=== PATIENT | male | born 1995 | race Caucasian/White ===

== ENCOUNTER 2018-01-20 21:41 | Emergency (ER) | payer OTHER, SELFPAY ==
[2018-01-20 21:55] VITALS: BP 119/72; PULSE 88; RESP 18; TEMP 36.6; O2SAT 100; BMI 22.8
--- NOTE | 2018-01-20 22:33 | DI.RAD.S_ITS ---
PROCEDURE: XR TOE LT MIN 2V INDICATIONS: hurt left 5th toe TECHNIQUE: 3 views of the 5th toe(s) acquired. COMPARISON: None. FINDINGS: Bones: No fractures or dislocations. No suspicious bony lesions. There is Tailor's bunion. vomiting. Soft tissues: No suspicious soft tissue densities. IMPRESSION: 1. No fracture or dislocation. 2. Tailor's bunion. Dictated by: Davon Rodriguez M.D. on 01/21/2018 at 9:38 Approved by: Davon Rodriguez M.D. on 01/21/2018 at 9:40
--- NOTE | 2018-01-21 00:53 | PC.NURSE ---
patient reports left 5th toe pain after he stubbed it tonight. no falls or other injuries.
--- NOTE | 2018-01-21 00:56 | PC.NURSE ---
xray was completed when patient was waiting in the lobby.
[2018-01-21 01:15] VITALS: BP 107/63; PULSE 77; RESP 18; TEMP 36.9; O2SAT 96
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
== END 2018-01-21 01:46 | disposition home or self-care (01) ==
PROVIDERS: Emergency Provider Emergency Medicine
DX: S93.505A Unspecified sprain of left lesser toe(s), initial encounter (principal); W22.09XA Striking against other stationary object, initial encounter
CPT/HCPCS: 73660; 99282; 99283

== ENCOUNTER 2018-06-17 15:07 | Emergency (ER) | payer OTHER, SELFPAY ==
[2018-06-17 15:34] VITALS: BP 117/69; PULSE 83; RESP 15; TEMP 37.1; O2SAT 98; BMI 24.3
[2018-06-17 15:57] LABS: Influenza A and B by PCR Rapid Negative (Negative)
--- NOTE | 2018-06-17 16:20 | ED_ITS ---
HPI - URI/Sore Throat <GERRY Gordillo - Last Filed: 06/17/18 21:53> General Chief Complaint: Upper Respiratory Symptoms Stated Complaint: FLU,COUGHING BLOOD AND MUCUS Time Seen by Provider: 06/17/18 16:19 Source: patient Mode of arrival: ambulatory Limitations: no limitations History of Present Illness HPI Narrative: 22-year-old healthy male that is a nonsmoker here for complaint of having cough generalized malaise and nasal congestion over the past several days. He also reports having a sore throat. He states that a couple days ago he had some blood tinged sputum. He denies any recent fever. Positive p.o. intake his has similar symptoms. No other concerns or complaints. Related Data Allergies Allergy/AdvReac Type Severity Reaction Status Date / Time Sulfa (Sulfonamide Allergy Unknown Verified 06/17/18 15:34 Antibiotics) [SULFA (SULFONAMIDE ANTIBIOTICS)] Review of Systems <GERRY Gordillo - Last Filed: 06/17/18 21:53> Constitutional Denies chills, Denies fever(s), Denies lethargy and Denies weakness Eyes Denies change in vision, Denies eye discharge, Denies irritation and Denies loss of vision ENT Ears, Nose, Mouth, and Throat: Reports nasal discharge, Reports sore throat and Denies throat swelling Cardiovascular Denies chest pain, Denies irregular heart rhythm, Denies lightheadedness, Denies palpitations and Denies orthopnea Respiratory Reports cough and Denies wheezing Gastrointestinal Gastrointestinal: Denies abdominal pain, Denies change in bowel habits, Denies diarrhea, Denies nausea and Denies vomiting Genitourinary Denies hematuria, Denies flank pain, Denies urinary incontinence and Denies urinary urgency Musculoskeletal Denies back pain, Denies muscle weakness, Denies numbness and Denies tingling Integumentary/Breasts Denies pruritus, Denies erythema, Denies rash and Denies wounds Neurologic Denies loss of vision, Denies numbness, Denies tingling and Denies weakness Endocrine Denies palpitations Hematologic/Lymphatic Denies easy bruising Allergic/Immunologic Denies urticaria, Denies throat swelling and Denies wheezing Exam <GERRY Gordillo - Last Filed: 06/17/18 21:53> Initial Vital Signs Initial Vital Signs: Vital Signs Temperature 98.7 F 06/17/18 15:34 Pulse Rate 83 06/17/18 15:34 Respiratory Rate 15 06/17/18 15:34 Blood Pressure 117/69 06/17/18 15:34 Pulse Oximetry 98 06/17/18 15:34 Const General: cooperative and well developed Nutritional Appearance: well nourished Orientation: alert, awake, oriented x3 and not confused [facility] Mouth: oral mucosae normal, oropharynx normal and moist mucous membranes Eyes Conjunctivae: conjunctivae normal Sclera: sclerae normal Pupils: PERRL EOM: EOM intact bilaterally Resp Effort & Inspection: normal respiratory effort, able to speak in complete sentences, no respiratory distress and no use of accessory muscles Auscultation: clear to auscultation bilaterally, no rales, no rhonchi and no wheezes Cardio Rate: regular rate Rhythm: regular rhythm Heart Sounds: no click, no gallops, no murmurs and no rubs Pulses: normal peripheral pulses Skin General: no rashes or lesions noted, No jaundice and No petechiae Neuro General: alert, oriented x3, gait normal and no focal motor deficits Speech: speech normal <Prisca Mcdaniels DO - Last Filed: 06/18/18 08:26> Initial Vital Signs Initial Vital Signs: Vital Signs Temperature 98.7 F 06/17/18 15:34 Pulse Rate 83 06/17/18 15:34 Respiratory Rate 15 06/17/18 15:34 Blood Pressure 117/69 06/17/18 15:34 Pulse Oximetry 98 06/17/18 15:34 Course <GERRY Gordillo - Last Filed: 06/17/18 21:53> Orders Ordered: ED Orders 06/17/18 15:37 Influenza A and B by PCR Rapid Stat Vital Signs - 8 hr 06/17/18 15:34 06/17/18 18:45 Temperature 98.7 F 98.2 F Pulse Rate 83 81 Respiratory Rate 15 16 Blood Pressure 117/69 Blood Pressure [Left Arm] 122/73 Pulse Oximetry 98 100 <Prisca Mcdaniels DO - Last Filed: 06/18/18 08:26> Orders Ordered: ED Orders 06/17/18 15:37 Influenza A and B by PCR Rapid Stat Vital Signs - 8 hr 06/17/18 15:34 06/17/18 18:45 Temperature 98.7 F 98.2 F Pulse Rate 83 81 Respiratory Rate 15 16 Blood Pressure 117/69 Blood Pressure [Left Arm] 122/73 Pulse Oximetry 98 100 MDM - URI/Sore Throat <GERRY Gordillo - Last Filed: 06/17/18 21:53> Differential Diagnosis Differential diagnosis: Likely bronchitis Lab Data Lab Results 06/17/18 Range/Units 15:37 Influenza A & B (PCR) Negative (Negative) MDM Narrative Medical decision making narrative: Influenza swab was obtained was unremarkable. Signs and symptoms presents as a viral upper respiratory infection. Plenty of fluids and rest. [id number] Tylenol or Motrin as needed for discomfort and fever. Saline irrigation and nasal passages and hot showers to help with congestion follow up with primary care provider next week. Return emergency room for any worsening symptoms. <Prisca Mcdaniels DO - Last Filed: 06/18/18 08:26> Lab Data Lab Results 06/17/18 Range/Units 15:37 Influenza A & B (PCR) Negative (Negative) Discharge Plan Departure Patient Disposition: Home Clinical Impression: Upper respiratory infection Discharge Date/Time: 06/17/18 18:47 Interventions: ED Discharge Assessment Last Done: 06/17/18 18:37 Instructions: DI for Viral Upper Respiratory Infection -- Adult Activity Restrictions/Additional Instructions: Influenza swab was obtained was unremarkable. Signs and symptoms presents as a viral upper respiratory infection. Plenty of fluids and rest. Over-the- counter Tylenol or Motrin as needed for discomfort and fever. Saline irrigation and nasal passages and hot showers to help with congestion follow up with primary care provider next week. Return emergency room for any worsening symptoms. Referrals: [facility] [Provider Group] <Prisca Mcdaniels DO - Last Filed: 06/18/18 08:26> Cosign ED Attending Cosignature Attestation: I was immediately available in the department for consultation. This documentation has been reviewed and I agree with assessment and plan. Supervised by Prisca Mcdaniels DO
--- NOTE | 2018-06-17 18:02 | RT ---
EKG performed at 1744 and given to provider Moi
[2018-06-17 18:45] VITALS: BP 122/73; PULSE 81; RESP 16; TEMP 36.8; O2SAT 100
== END 2018-06-17 18:47 | disposition home or self-care (01) ==
PROVIDERS: Emergency Medicine; Emergency Provider Nurse Practitioner Family
DX: J06.9 Acute upper respiratory infection, unspecified (principal)
CPT/HCPCS: 87400; 99282; 99283

== ENCOUNTER 2019-03-05 19:16 | Emergency (ER) | payer OTHER, SELFPAY ==
[2019-03-05 19:22] VITALS: BP 115/77; PULSE 113; RESP 18; TEMP 37.3; O2SAT 100
--- NOTE | 2019-03-05 19:25 | ED_ITS ---
HPI - General Adult General Stated complaint: fever and chills, wisdoms extracted Time Seen by Provider: 03/05/19 19:19 Source: patient Mode of arrival: ambulatory Limitations: no limitations History of Present Illness HPI narrative: 23-year-old male here for evaluation of a fever and sinus congestion. He states that 9 days ago he underwent a was in teeth extraction of all 4 wisdom teeth. Yesterday he did spend a ?extended ?amount of time in a hot tub. When he got out he felt fevers. He states this morning his field some nausea and pressure in his head. Did take some leftover oxycodone which had Tylenol in it prior to arrival. Related Data Allergies Allergy/AdvReac Type Severity Reaction Status Date / Time Sulfa (Sulfonamide Allergy Unknown Verified 03/05/19 19:26 Antibiotics) [SULFA (SULFONAMIDE ANTIBIOTICS)] Review of Systems Constitutional Constitutional: Reports fever(s) and Reports headache(s) (?Pressure ?) ENT Ears, Nose, Mouth, and Throat: Denies vertigo, Reports headache(s) (?Pressure ?), Denies neck pain and Reports sinus pressure Cardiovascular Cardiovascular: Denies chest pain and Denies dyspnea Respiratory Respiratory: Denies dyspnea Gastrointestinal Gastrointestinal: Denies abdominal pain Genitourinary Genitourinary: Denies dysuria Musculoskeletal Musculoskeletal: Reports back pain (Lower back pain), Denies myalgias, Denies arthralgias and Denies neck pain Integumentary/Breasts Skin/Breast: Denies lesions and Denies rash Neurologic Neurologic: Denies vertigo and Reports headache(s) (?Pressure ?) Hematologic/Lymphatic Hematologic/Lymphatic: Denies easy bleeding and Denies easy bruising [facility] Medical History Healthy adult (Acute) Social History Smoking Status: Never smoker alcohol intake: never substance use type: does not use Exam Const General: cooperative, comfortable, well developed and well groomed Orientation: alert, awake and oriented x3 HENMT Head: normal to inspection and normocephalic Ears: other (Left TM bulging right TM unremarkable) Neck Neck: no meningeal signs Resp Effort & Inspection: normal respiratory effort Auscultation: clear to auscultation bilaterally Cardio Rate: regular rate Rhythm: regular rhythm Skin Lesions: no lesions Rashes: no rashes Neuro General: alert, awake and oriented x3 Cognition: normal cognition Speech: speech normal Extrem General: normal to inspection and capillary refill normal Psych Appearance: grossly normal and well kempt Medical Decision Making MDM Narrative Medical decision making narrative: Patient does have signs of an upper respiratory infection. His wisdom teeth extractions like very well. I have low suspicion that this is the cause of his symptoms. Will treat with decongestants. Patient given return precautions and follow-up instructions. Expressed understanding agreement plan. Discharge Plan Departure Patient Disposition: Home Clinical Impression: Acute upper respiratory infection Instructions: DI for Viral Upper Respiratory Infection -- Adult Activity Restrictions/Additional Instructions: Recommend you start a decongestant such as Claritin or [place] or Zyrtec. You can also started nasal spray such as Flonase or Nasonex. He can take Tylenol or ibuprofen for any the fevers. Contact your medical department for follow-up. Stand Alone Forms: Work Release Note
== END 2019-03-05 19:39 | disposition home or self-care (01) ==
PROVIDERS: Emergency Provider Emergency Medicine
DX: J06.9 Acute upper respiratory infection, unspecified (principal)
CPT/HCPCS: 99282

== ENCOUNTER 2020-10-27 13:54 | Emergency (ER) | payer OTHER, SELFPAY ==
[2020-10-27 14:18] VITALS: BP 123/75; PULSE 90; RESP 18; TEMP 37.6; O2SAT 100; BMI 28.8
[2020-10-27 14:27] VITALS: PULSE 80; TEMP 37.6; O2SAT 99
[2020-10-27 14:30] VITALS: BP 119/70; PULSE 79; O2SAT 99
[2020-10-27 15:00] VITALS: BP 118/59; PULSE 70; O2SAT 98
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
[2020-10-27 15:30] VITALS: BP 113/60; PULSE 68; RESP 14; O2SAT 98
== END 2020-10-27 15:46 | disposition home or self-care (01) ==
PROVIDERS: Emergency Provider Emergency Medicine
DX: S00.83XA Contusion of other part of head, initial encounter (principal); W22.8XXA Striking against or struck by other objects, initial encounter
CPT/HCPCS: 99281

== ENCOUNTER 2021-11-16 05:04 | Emergency (ER) | payer OTHER, SELFPAY ==
[2021-11-16 05:19] VITALS: BP 126/86; PULSE 72; RESP 17; TEMP 36.3; O2SAT 100; BMI 25.8
[2021-11-16 05:20] LABS: Appearance Urine UA CLOUDY; Bilirubin Urine UA NEGATIVE (NEGATIVE); Glucose Urine UA NEGATIVE (Negative); Ketones Urine UA NEGATIVE (NEGATIVE); Leukocyte Esterase Urine UA NEGATIVE (NEGATIVE); Nitrite Urine UA NEGATIVE (Negative); Occult Blood Urine UA 3+ (Negative); Protein Urine UA 2+ (Negative); Specific Gravity Urine UA >=1.030 (1.000-1.035); Urobilinogen Urine UA 0.2 E.U./dL (0.2)
--- NOTE | 2021-11-16 05:28 | ED_ITS ---
HPI - General Adult General Chief complaint: Urogenital-Male Stated complaint: groin pain/blood in urine x1 day Time Seen by Provider: 11/16/21 05:16 Source: patient Mode of arrival: Ambulatory Limitations: no limitations History of Present Illness HPI narrative: 26-year-old otherwise healthy male who is here for evaluation of suprapubic/groin discomfort and also blood in his urine. Initially patient states that the symptoms have been going on for the past a however further questioning shows he potentially has been having some lower abdominal discomfort for the past week or so it just has worsened over the past 24 hours. He states that he is having burning when he urinates. He feels like he is not emptying his bladder. Does see blood in his urine. No change in bowel habits. No fevers. He has had symptoms in the past and he states that it was from an enlarged prostate however when he states he was treated with Cipro it appears that he actually had prostatitis. He has never had any sexually transmitted infections. He is . His low concern for sexually transmitted infection currently. He denies testicular pain. No rashes. Related Data Home Medications Medication Instructions Recorded Confirmed gabapentin 300 mg capsule 300 mg PO QAM 10/27/20 10/27/20 Previous Rx's Medication Instructions Recorded hydrocodone 5 mg-acetaminophen 325 1 tab PO Q4-6H PRN #10 tab 11/16/21 mg tablet hydrocodone 5 mg-acetaminophen 325 1 tab PO QID PRN #10 tab 11/16/21 mg tablet ondansetron 4 mg disintegrating 4 mg PO Q6H PRN #10 tab 11/16/21 tablet Allergies Allergy/AdvReac Type Severity Reaction Status Date / Time Sulfa (Sulfonamide Allergy Unknown Verified 10/27/20 14:23 Antibiotics) [SULFA (SULFONAMIDE ANTIBIOTICS)] Review of Systems Constitutional Constitutional: Denies fever(s) Cardiovascular Cardiovascular: Reports system reviewed and no additional complaints, except as documented Respiratory Respiratory: Reports system reviewed and no additional complaints, except as documented Gastrointestinal Gastrointestinal: Reports as per HPI and Reports system reviewed and no additional complaints, except as documented Genitourinary Genitourinary: Reports system reviewed and no additional complaints, except as documented Integumentary/Breasts Skin/Breast: Reports system reviewed and no additional complaints, except as documented Hematologic/Lymphatic On Anticoagulants: No Patient History Medical History Healthy adult Social History Smoking Status: Never smoker alcohol intake: never substance use type: does not use Smoking Status: Never smoker alcohol intake frequency: a few times a week Substance Use Type: does not use Exam Initial Vital Signs Initial Vital Signs: Vital Signs Temperature 97.4 F L 11/16/21 05:19 Pulse Rate 72 11/16/21 05:19 Respiratory Rate 17 11/16/21 05:19 Blood Pressure 126/86 11/16/21 05:19 Pulse Oximetry 100 11/16/21 05:19 Const General: cooperative and healthy appearing HENMT Head: normal to inspection and normocephalic Resp Effort & Inspection: normal respiratory effort Cardio Rate: regular rate GI Inspection: normal to inspection Palpation: soft, No firm and tender (Suprapubic region) Rectal Exam: normal sphincter tone, prostate normal and No fecal impaction Skin General: no rashes or lesions noted Neuro General: patient alert, patient awake and moves all extremities Extrem General: normal to inspection and capillary refill normal Psych Appearance: grossly normal and well kempt Course Orders Ordered: ED Orders 11/16/21 05:15 Chlamydia Gonorrhea PCR -URINE Stat Urinalysis and Microscopic Stat Urine Culture Stat 11/16/21 05:41 CT kidney ureter bladder (KUB) Stat 11/16/21 05:50 Basic Metabolic Panel Stat Complete Blood Count AUTO DIFF Stat Vital Signs Vital signs: Vital Signs - 8 hr 11/16/21 05:19 11/16/21 07:01 Temperature 97.4 F L Pulse Rate 72 70 Respiratory Rate 17 15 Blood Pressure 126/86 117/75 Pulse Oximetry 100 100 Medical Decision Making Lab Data Lab results reviewed: Yes I reviewed the patient's lab results. Result diagrams: 11/16/21 05:50 11/16/21 05:50 Labs: Lab Results 11/16/21 11/16/21 11/16/21 Range/Units 05:15 05:15 05:50 WBC 5.4 (4.5-11.0) X10^3/uL RBC 5.02 (4.5-5.9) X10^6/uL Hgb 16.0 (13.5-17.5) g/dL Hct 45.4 (41-53) % MCV 90.4 (80-100) fL MCH 31.8 (26-34) PG MCHC 35.2 (30-36) % RDW 12.6 (11.6-14.8) % Plt Count 183 (150-400) X10^3/uL Neut % (Auto) 39.1 L (50-75) % Lymph % (Auto) 45.0 H (25-40) % [place] % (Auto) 13.2 (3-14) % Eos % (Auto) 1.9 L (2-4) % Baso % (Auto) 0.8 (0-2) % Neut # (Auto) 2100 (8881-1599) /uL Lymph # (Auto) 2400 (9342-5668) /uL [place] # (Auto) 700 (0-900) /uL Eos # (Auto) 100 (0-450) /uL Baso # (Auto) 0 (0-100) /uL Sodium (137-145) mmol/L Potassium (3.4-5.1) mmol/L Chloride (98-107) mmol/L Carbon Dioxide (22-32) mmol/L BUN (9-20) mg/dL Creatinine (0.66-1.25) mg/dL Estimated GFR (>60) mL/min BUN/Creatinine Ratio (6-22) Glucose (70-100) mg/dL Calcium (8.4-10.2) mg/dL Urine Color Dark yellow Urine Appearance Cloudy Urine pH 5.0 (4.5-8.0) Ur Specific [place] >=1.030 H (1.000-1.035) Urine Protein 2+ H (Negative) Urine Glucose (UA) Negative (Negative) g/dL Urine Ketones Negative (NEGATIVE) Urine Occult Blood 3+ H (Negative) Urine Nitrate Negative (Negative) Urine Bilirubin Negative (NEGATIVE) Urine Urobilinogen 0.2 (0.2) E.U./dL Ur Leukocyte Esterase Negative (NEGATIVE) Urine RBC >100/hpf H (0-5/HPF) Urine WBC 0-1/hpf (0-5/HPF) Ur Squamous Epith Cells 0-1 /hpf (0-5/HPF) Urine Bacteria Few (2-10) H (None) Urine Mucus 2+ H (Negative) Ur Culture Indicated? Specimen cultured Ur Chlamydia DNA (PCR) Not detected N gonorrhoeae DNA (PCR) Not detected 11/16/21 Range/Units 05:50 WBC (4.5-11.0) X10^3/uL RBC (4.5-5.9) X10^6/uL Hgb (13.5-17.5) g/dL Hct (41-53) % MCV (80-100) fL MCH (26-34) PG MCHC (30-36) % RDW (11.6-14.8) % Plt Count (150-400) X10^3/uL Neut % (Auto) (50-75) % Lymph % (Auto) (25-40) % [place] % (Auto) (3-14) % Eos % (Auto) (2-4) % Baso % (Auto) (0-2) % Neut # (Auto) (0219-0625) /uL Lymph # (Auto) (5565-6365) /uL [place] # (Auto) (0-900) /uL Eos # (Auto) (0-450) /uL Baso # (Auto) (0-100) /uL Sodium 141 (137-145) mmol/L Potassium 4.1 (3.4-5.1) mmol/L Chloride 107 (98-107) mmol/L Carbon Dioxide 28 (22-32) mmol/L BUN 18 (9-20) mg/dL Creatinine 1.01 (0.66-1.25) mg/dL Estimated GFR > 60 (>60) mL/min BUN/Creatinine Ratio 17.8 (6-22) Glucose 97 (70-100) mg/dL Calcium 9.2 (8.4-10.2) mg/dL Urine Color Urine Appearance Urine pH (4.5-8.0) Ur Specific [place] (1.000-1.035) Urine Protein (Negative) Urine Glucose (UA) (Negative) g/dL Urine Ketones (NEGATIVE) Urine Occult Blood (Negative) Urine Nitrate (Negative) Urine Bilirubin (NEGATIVE) Urine Urobilinogen (0.2) E.U./dL Ur Leukocyte Esterase (NEGATIVE) Urine RBC (0-5/HPF) Urine WBC (0-5/HPF) Ur Squamous Epith Cells (0-5/HPF) Urine Bacteria (None) Urine Mucus (Negative) Ur Culture Indicated? Ur Chlamydia DNA (PCR) N gonorrhoeae DNA (PCR) Imaging Data CT scan - abdomen/pelvis: Radiologist's Impression: Mild right-sided hydroureter with a distal right ureteral calculus measuring 3 mm Additional nonobstructing bilateral renal calculi are noted. MDM Narrative Medical decision making narrative: Patient has no prostate tenderness on exam. He does have hematuria and some bacteria but no other signs of infection. His labs show normal kidney function. CT scan shows 3 mm distal right-sided ureteral stone. This does explain the patient's symptoms. He is not septic. Was sent home with symptom control. He was given care instructions and return precautions. He expressed understanding and agreement. Discharge Plan Departure Patient Disposition: Home Clinical Impression: Right ureteral stone Instructions: DI for Kidney Stones Activity Restrictions/Additional Instructions: The CT scan today does show a 3 mm right-sided ureteral stone which does explain your presenting symptoms. A prescription for pain medication and nausea medicine was electronically transmitted to [facility] in [place] per your request. Take them as needed and as directed. Return to the emergency department for any new or worsening symptoms. pharmacy contacted us the patient's prescription was accidentally electronically deleted at the pharmacy. They call to see if we can resend the prescription today, 11/16/2021 and was sent by myself Dr. Mcdaniels Prescriptions: New ondansetron 4 mg tablet,disintegrating 4 mg PO Q6H PRN (Reason: nausea and vomiting) Qty: 10 0RF hydrocodone-acetaminophen 5-325 mg tablet 1 tab PO Q4-6H PRN (Reason: pain) Qty: 10 0RF hydrocodone-acetaminophen 5-325 mg tablet 1 tab PO QID PRN (Reason: pain) Qty: 10 0RF No Action gabapentin 300 mg capsule 300 mg PO QAM 0RF Rx Instructions: was taking tid, now daily
[2021-11-16 05:29] LABS: Color Urine UA Dark Yellow
[2021-11-16 05:30] LABS: Bacteria Urine Few (2-10); Mucus Urine 2+ (Negative); RBC Urine >100/HPF (0-5/HPF); Squamous Epithelial Cell Urine 0-1 /HPF (0-5/HPF); WBC Urine 0-1/HPF (0-5/HPF)
[2021-11-16 05:31] LABS: Culture Indicated Urine Specimen Cultured
--- NOTE | 2021-11-16 05:41 | DI.CT.S_ITS ---
PROCEDURE: CT KIDNEY URETER BLADDER (KUB) INDICATIONS: hematuria and suprapubic pain eval for stone TECHNIQUE: Axial sections were acquired from the lung bases to the pubic symphysis. Coronal and sagittal reformats were performed. For radiation dose reduction, the following was used: automated exposure control, adjustment of mA and/or kV according to patient size. COMPARISON: None. FINDINGS: Image quality: Excellent. Lung bases: Unremarkable. Heart: No significant findings. URINARY: Right Kidney: 3 mm nonobstructing calcification is noted within the mid pole. No perinephric stranding. No gross hydronephrosis. Right Ureter: 3 mm calcification within the distal ureter approximately 1 cm proximal to the ureterovesicular junction. There is minimal hydroureter. Left Kidney: There are 2 punctate nonobstructing calcifications 1 in the superior and 1 in the inferior renal pole. Left Ureter: No hydroureter. Bladder: Normal wall thickness. No stones. ABDOMEN: Liver: Unremarkable. Gallbladder: Unremarkable. Biliary ducts: Unremarkable. Pancreas: Unremarkable. Spleen: Unremarkable. Adrenal Glands: Unremarkable. Stomach and Bowel: Stomach, small bowel loops, and colon are unremarkable. Peritoneum: No abnormal intraperitoneal fluid. No free air. Ventral Wall: No hernia. Abdominal Nodes: No enlarged retroperitoneal or mesenteric lymph nodes. Vessels: Aorta and inferior vena cava are normal in size. PELVIS: Pelvic Organs: Unremarkable. Pelvic Nodes: Unremarkable. Miscellaneous: No inguinal hernias are seen. Bones: Unremarkable. IMPRESSION: 3 mm calcification within the right distal ureter with minimal right hydroureter. Bilateral nonobstructing renal calculi. The above findings are concordant with preliminary report. Dictated by: Dian Patino M.D. on 11/16/2021 at 8:08 Approved by: Dian Patino M.D. on 11/16/2021 at 8:11
[2021-11-16 06:01] LABS: Add Manual Diff / Slide Review NO; Basophils Absolute Auto 0 /uL (0-100); Basophils Percent Auto 0.8 % (0-2); Eosinophils Absolute Auto 100 /uL (0-450); Eosinophils Percent Auto 1.9 % (2-4); Hematocrit 45.4 % (41-53); Lymphocytes Absolute Auto 2400 /uL (1100-4500); Mean Corpuscular HGB Conc 35.2 % (30-36); Mean Corpuscular Hemoglobin 31.8 PG (26-34); Mean Corpuscular Volume 90.4 fL (80-100); Monocytes Absolute Auto 700 /uL (0-900); Monocytes Percent Auto 13.2 % (3-14); Neutrophils Absolute Auto 2100 /uL (1500-7000); Neutrophils Percent Auto 39.1 % (50-75); Platelet Count 183 X10^3/uL (150-400); Red Blood Cell Count 5.02 X10^6/uL (4.5-5.9); Red Cell Distribution Width 12.6 % (11.6-14.8); White Blood Cell Count 5.4 X10^3/uL (4.5-11.0)
[2021-11-16 06:11] LABS: BUN Creatinine Ratio 17.8 (6-22); Blood Urea Nitrogen 18 mg/dL (9-20); Calcium 9.2 mg/dL (8.4-10.2); Carbon Dioxide 28 mmol/L (22-32); Chloride 107 mmol/L (98-107); Estimated Glomerular Filt Rate > 60 mL/min (>60); Glucose 97 mg/dL (70-100); HEMOLYSIS 29 (0-50); Potassium 4.1 mmol/L (3.4-5.1); Sodium 141 mmol/L (137-145)
[2021-11-16 07:01] VITALS: BP 117/75; PULSE 70; RESP 15; O2SAT 100
[2021-11-16 07:20] LABS: Urine N gonorrhoeae NOT DETECTED
[2021-11-16 07:21] LABS: Urine Chlamydia NOT DETECTED
== END 2021-11-16 07:02 | disposition home or self-care (01) ==
PROVIDERS: Emergency Provider Emergency Medicine
DX: N20.1 Calculus of ureter (principal); R31.9 Hematuria, unspecified
CPT/HCPCS: 36415; 51798; 74176; 80048; 81001; 85025; 87086; 87491; 87591; 99284